=== PATIENT | male | born 1980 | race Caucasian/White ===

== ENCOUNTER 2016-10-26 15:45 | Day surgery (SDC) | payer BC ==
--- NOTE | ~2016-10-26 | OP ---
Record Of Operation [facility] [address] [place]. [address] NAME: TONYA LANDIN : 78 STATUS : [place] [facility] [place] PAT#: [id number] AGE: 36 ADM/REG DATE : 10/26/16 MR#: [id number] REPORT SERV DATE: 10/27/16 DICTATED BY: DEXTER SHER DATE: 10/26/16 REPORT STATUS : Draft TRANSCRIBED BY: MODL DATE: 10/26/16 DATE OF PROCEDURE: 10/26/2016 PREOPERATIVE DIAGNOSIS: Right UPJ stone, history of right ureteral stone, hydronephrosis, flank pain. POSTOPERATIVE DIAGNOSIS: Right UPJ stone, history of right ureteral stone, hydronephrosis, flank pain. PROCEDURE PERFORMED: Cystoscopy, right retrograde pyelogram, right flexible ureterorenoscopy, removal of multiple stones from the right kidney, and stent placement. ANESTHESIA: General. ESTIMATED BLOOD LOSS: About 15 mL. INDICATIONS: This is a 36-year-old white male, who presented to the office yesterday in distress with right flank pain. Recent CT scan has shown a 4 mm obstructing right UPJ stone. It is also suspected that he has just passed right ureteral stone as well. After discussion of management options, we have elected to proceed with endoscopic management. Risks of infection, bleeding, failure, need for further surgery have been discussed. PROCEDURE IN DETAIL: The patient was taken to the operating room and underwent a general anesthetic. He was placed in a lithotomy position on the table, and his external genitalia were sterilely prepped and draped. The 22-Austrian cystoscope sheath with 30-degree lens was inserted under direct vision per urethra with the aid of the video monitor. The anterior urethra looked normal. The prostatic urethra was short and nonocclusive. The bladder was thoroughly inspected as well. He had severe inflammatory changes involving primarily the right trigone, but extending over to the left trigone as well. Both orifices were completely obscured by inflammatory change. With great difficulty, I identified a right orifice and cannulated it with a guidewire and a 5-Austrian catheter. A retrograde pyelogram was obtained showing a dilated ureter down to the UVJ. The collecting system was spindly looking and it was difficult to determine whether there were stones present in the kidney. An 0.038 guidewire was advanced up into the kidney under fluoroscopic guidance and a 9.5- Austrian ureteral access sheath with obturator was inserted over the guidewire and advanced up into the mid ureter. A second guidewire was advanced through the access sheath, and the sheath and obturator were then reinserted over one of the two guidewires leaving the other in place as a safety wire. The flexible ureteroscope was advanced up into the proximal ureter through the access sheath into the proximal ureter. Ureteral stone was encountered there that migrated proximally back up into the collecting system of the kidney. Visibility in the kidney was very poor. The mucosa was very irritated and bled freely. I removed four stones from the collecting system of the kidney with the basket extraction. All visible stones were removed. After diligent inspection of the collecting system, the scope was pulled back down through the ureter. No new findings and no stones were noted particularly in the distal ureter. The cystoscope was then reinserted over the guidewire and a 5-Austrian x 26 cm Polaris stent was advanced over the guidewire such that the proximal end of the Record Of Operation [facility] [id number] [place]. [address] NAME: TONYA LANDIN : 78 STATUS : [place] [facility] [place] PAT#: [id number] AGE: 36 ADM/REG DATE : 10/26/16 MR#: [id number] REPORT SERV DATE: 10/27/16 DICTATED BY: DEXTER SHER DATE: 10/26/16 REPORT STATUS : Draft TRANSCRIBED BY: ANICETO DATE: 10/26/16 stent was observed to coil in the pelvis of the kidney under fluoroscopic guidance. The distal end of the stent was visually observed to coil in the bladder following removal of the guidewire. The stent was left connected to a string dangle which was taped to the patient's penis. The bladder was drained. All endoscopic apparatus was removed, and the patient was taken to recovery in stable condition. SOCORRO/ANICETO Dexter Sher M.D. / [id number] CC: Dexter Sher M.D. Dexter Rodriguez D.O.
[~2016-10-26 15:45] MED LIST: ANTIBIOTIC PO; CLARIT10 PO; FLOMAX4 PO; MAG-DELAY PO; MAGNESIUM; NEXIUM20 M1 PO; NORCO1 TA2 PO; NORCO1 TAB PO; VALTREX5 PO
[2016-10-26 16:18] LABS: BASOPHILS 0.1 %; BASOPHILS ABSOLUTE 0.01 10/3/uL (0.0-0.16); EOSINOPHILS 0.8 %; EOSINOPHILS ABSOLUTE 0.06 10/3/uL (0.0-0.53); HEMATOCRIT 44.9 % (40.0-51.0); HEMOGLOBIN 15.4 g/dL (13.6-17.8); IMMATURE GRANULOCYTES 0.3 %; IMMATURE GRANULOCYTES ABSOLUTE 0.02 10/3/uL (0.0-0.11); LYMPHOCYTES 28.2 %; LYMPHOCYTES ABSOLUTE 2.23 10/3/uL (0.67-4.30); MEAN CORPUS HGB CONC 34.3 g/dL (32.0-36.0); MEAN CORPUSCULAR VOLUME 99.1 fL (80-100); MEAN PLATELET VOLUME 10.5 fL (9.2-13.0); MONOCYTES 9.6 %; MONOCYTES ABSOLUTE 0.76 10/3/uL (0.21-1.20); NEUTROPHILS ABSOLUTE 4.83 10/3/uL (2.02-8.40); PLATELET COUNT 240 10/3/uL (150-400); RBC DISTRIBUTION WIDTH 12.7 % (12.0-16.0); RED CELL COUNT 4.53 10/6/uL (4.7-6.1); WHITE BLOOD CELLS 7.9 10/3/uL (4.5-10.5)
[2016-10-26 16:19] LABS: MANUAL DIFF NO %
[2016-10-26 16:24] LABS: INTERNATIONAL NORMAL RATI 1.1 UNITS (-); PARTIAL THROMBO TIME 33.2 SEC (22.5-37.2); PROTIME (NOT ORD) 14.1 SEC (12.0-14.5)
[2016-10-26 16:32] LABS: CHLORIDE, SERUM 104 MMOL/L (96-112); CREATININE 1.19 MG/DL (0.70-1.30); GFR AFRICAN AMERICAN 90 ML/MIN (>=60); GFR NON AFRICAN AMERICAN 78 ML/MIN (>=60); GLUCOSE, SERUM 93 MG/DL (60-99); SODIUM, SERUM 139 MMOL/L (135-148)
[2016-10-26 16:34] LABS: BUN (BLOOD UREA NITROGEN) 17 MG/DL (6-23); CO2 (CARBON DIOXIDE) 31 MMOL/L (24-34)
[2016-11-01 01:24] LABS: STONE COMPOSITION TWO DNR (())
== END 2016-10-27 00:46 | disposition home or self-care (01) ==
LOC: SDC 15:45
PROVIDERS: Urology
PROC: 0T768DZ Dilation of Right Ureter with Intraluminal Device, Via Natural or Artificial Opening Endoscopic (ICD-10-PCS; 2016-10-26)
PROC: BT1DYZZ Fluoroscopy of Right Kidney, Ureter and Bladder using Other Contrast (ICD-10-PCS; 2016-10-26)
PROC: 0TC68ZZ Extirpation of Matter from Right Ureter, Via Natural or Artificial Opening Endoscopic (ICD-10-PCS; principal; 2016-10-26 16:15)
DX: N13.2 Hydronephrosis with renal and ureteral calculous obstruction (principal); K21.9 Gastro-esophageal reflux disease without esophagitis; F41.9 Anxiety disorder, unspecified; Z90.49 Acquired absence of other specified parts of digestive tract; Z98.890 Other specified postprocedural states
CPT/HCPCS: 74420; 80048; 82365; 85025; 85610; 85730; A9270-GY; C1758; C1894; C2617; J1170; J2250; J2405; J2710; J3010; Q9967